=== PATIENT | female | born 1985 | race African-American/Black ===

== ENCOUNTER 2017-03-11 19:40 | Emergency (ER) | payer BC ==
[~2017-03-11] VITALS: Ht 167.6 cm; Wt 63.5 kg
--- NOTE | 2017-03-11 20:10 | NUR ---
PT BIB SELF FROM HOME C/O ABD'L PAIN FOR OVER 7HRS. WAITING IN ER BED 8. BEING SEEN BY MD. Pt IS A/OX4. VS STABLE.
--- NOTE | 2017-03-11 20:20 | NUR ---
URINE SAMPLE COLLECTED. BLOOD CULTURES COLLECTED.
[2017-03-11 20:26] LABS: APPEARANCE,URINE Clear (CLEAR); BILIRUBIN,URINE Negative (NEGATIVE); BLOOD, URINE Negative Ery/uL (NEGATIVE); COLOR,URINE Yellow (YELLOW); KETONES,URINE Negative (NEGATIVE); LEUKOCYTE ESTERASE ,URINE Negative (NEGATIVE); NITRITE, URINE Negative (NEGATIVE); PH,URINE 7.5 (5.0-8.0); PROTEIN,URINE Negative (NEGATIVE); UGLUCOSE Negative (NEGATIVE); UROBILINOGEN,URINE 0.2 EU/dL (0.2)
[2017-03-11 20:26] LABS: BASOPHILS % (AUTO) 0.5 % (0.0-2.0); EOSINOPHILS # (AUTO) 0.3 /CMM (0.0-0.7); EOSINOPHILS % (AUTO) 3.1 % (0.0-6.0); HEMATOCRIT 38 % (33-45); HEMOGLOBIN 12.9 g/dL (11.5-14.8); LYMPHOCYTES # (AUTO) 4.1 /CMM (0.8-4.8); LYMPHOCYTES % (AUTO) 44.2 % (20.0-44.0); MEAN CORPUSCULAR HEMOGLOBIN 30 PG (26.0-33.0); MEAN CORPUSCULAR HGB CONC 34 g/dl (31.0-36.0); MEAN CORPUSCULAR VOLUME 88 fL (82-100); MONOCYTES # (AUTO) 0.6 /CMM (0.1-1.30); MONOCYTES % (AUTO) 6.4 % (2.0-12.0); NEUTROPHILS # (AUTO) 4.3 /CMM (1.8-8.9); NEUTROPHILS % (AUTO) 45.8 % (43.0-81.0); PLATELET COUNT (AUTO) 279 /CMM (150-450); RDW COEFFICIENT OF VARIATION 13.9 (11.5-15.0); RED BLOOD CELL COUNT(AUTO) 4.34 MIL/uL (4.0-5.2); WHITE BLOOD COUNT (AUTO) 9.3 K/uL (4.3-11.0)
[2017-03-11 20:32] LABS: CALCIUM, SERUM 8.9 mg/dL (8.5-10.1); CREATININE 0.8 mg/dL (0.6-1.3); POTASSIUM 4.1 mmol/L (3.5-5.1)
[2017-03-11 20:38] LABS: ALBUMIN 4.1 g/dL (3.4-5.0); BILIRUBIN,DIRECT 0.1 mg/dL (0.0-0.2); BILIRUBIN,TOTAL 0.3 mg/dL (0.2-1.0); TOTAL PROTEIN, SERUM 8.2 g/dL (6.4-8.2)
[2017-03-11 20:41] LABS: PREGNANCY TEST URINE QUAL NEGATIVE (NEGATIVE)
[2017-03-11 20:54] VITALS: BP 115/72
== END 2017-03-11 20:58 | disposition home or self-care (01) ==
LOC: ER 19:42
DX: K29.00 Acute gastritis without bleeding (principal); Z88.0 Allergy status to penicillin; Z88.2 Allergy status to sulfonamides; Z90.49 Acquired absence of other specified parts of digestive tract
CPT/HCPCS: 36415; 80048-TC; 80076-TC; 81000-TC; 83690-TC; 84703-TC; 85025-TC; A4606; Z7610

== ENCOUNTER 2017-04-13 23:03 | Emergency (ER) | payer BC ==
[~2017-04-13] VITALS: Ht 162.6 cm; Wt 93.0 kg
--- NOTE | 2017-04-13 23:50 | NUR ---
PT BIBSELF C/O "I'VE BEEN COUGHING UP BLOOD" AT 10PM TONIGHT. PT ALSO C/O MID STERNAL CHEST PAIN SINCE THURSDAY. PT AOX3 RR EVEN AND UNLABORED. NO SOB NOTED. NAD NOTED. NO NVD AT THIS TIME. PT GOWNED. DR DUVALL AT BEDSIDE FOR EVAL. URINE COLLECTED.
--- NOTE | 2017-04-13 23:56 | NUR ---
CALLED LAB FOR [facility].
--- NOTE | 2017-04-14 00:15 | NUR ---
RADIOLOGY AT BEDSIDE FOR CXR
--- NOTE | 2017-04-14 01:20 | NUR ---
DR. DUVALL AT BEDSIDE SPEAKING TO PT REGARDING RESULTS.
--- NOTE | 2017-04-14 01:25 | NUR ---
IV removed. Catheter intact and site benign. Pressure and 4x4 applied to site. No bleeding noted. Patient discharged to home in stable condition. Written and verbal after care instructions given. Patient verbalizes understanding of instruction. ambulatory with a steady gait.
[2017-04-14 01:27] VITALS: BP 126/62
== END 2017-04-14 01:27 | disposition home or self-care (01) ==
LOC: ER 23:03
DX: J06.9 Acute upper respiratory infection, unspecified (principal); R04.2 Hemoptysis; Z88.0 Allergy status to penicillin; Z88.2 Allergy status to sulfonamides; Z90.49 Acquired absence of other specified parts of digestive tract; Z60.2 Problems related to living alone
CPT/HCPCS: 71010; 84703; 99283; A4606; Z7610

== ENCOUNTER 2018-02-19 14:46 | Emergency (ER) | payer BC, OTHER ==
[~2018-02-19] VITALS: Ht 165.1 cm; Wt 102.1 kg
--- NOTE | 2018-02-19 14:52 | NUR ---
BROUGHT IN BY SELF 32 YEAR OLD FEMALE C/O SUBSTERNAL CP X 1 WEEK. PATIENT STATED THE PAIN IS INTERMITENT. BREATHING EVEN AND UNALBORED WITH NO DISTRESS NOTED. SKIN WARM TO TOUCH AND INTACT. AWAITING TO BE SEEN BY .
[2018-02-19] MEDS ORDERED: MAG HYDROX/AL HYDROX/SIMETH 30 ML UDC PO ONE (15:00)
[2018-02-19] MEDS ORDERED: LIDOCAINE VISCOUS 2% UD 15 ML UDC MM ONE (15:00)
[2018-02-19 15:17] LABS: BASOPHILS # (AUTO) 0.2 /CMM (0.0-0.2); BASOPHILS % (AUTO) 3.2 % (0.0-2.0); EOSINOPHILS % (AUTO) 1.8 % (0.0-6.0); HEMATOCRIT 37 % (33-45); HEMOGLOBIN 12.4 g/dL (11.5-14.8); LYMPHOCYTES # (AUTO) 2.7 /CMM (0.8-4.8); MEAN CORPUSCULAR HEMOGLOBIN 30 PG (26.0-33.0); MEAN CORPUSCULAR HGB CONC 33 g/dl (31.0-36.0); MEAN CORPUSCULAR VOLUME 89 fL (82-100); MONOCYTES # (AUTO) 0.4 /CMM (0.1-1.30); MONOCYTES % (AUTO) 4.9 % (2.0-12.0); NEUTROPHILS # (AUTO) 4.3 /CMM (1.8-8.9); NEUTROPHILS % (AUTO) 55.1 % (43.0-81.0); PLATELET COUNT (AUTO) 301 /CMM (150-450); RDW COEFFICIENT OF VARIATION 13.4 (11.5-15.0); RED BLOOD CELL COUNT(AUTO) 4.18 MIL/uL (4.0-5.2); WHITE BLOOD COUNT (AUTO) 7.7 K/uL (4.3-11.0)
[2018-02-19] MEDS ORDERED: MAG HYDROX/AL HYDROX/SIMETH 30 ML UDC ONE (15:22)
[2018-02-19] MEDS ORDERED: LIDOCAINE VISCOUS 2% UD 15 ML UDC ONE (15:24)
[2018-02-19 15:27] LABS: CALCIUM, SERUM 9.2 mg/dL (8.5-10.1); CARBON DIOXIDE 26 mmol/L (21-32); CHLORIDE 106 mmol/L (98-107); CREATININE 0.8 mg/dL (0.6-1.3); GLUCOSE 105 mg/dL (74-106); POTASSIUM 4.2 mmol/L (3.5-5.1); SODIUM SERUM 138 mmol/L (136-145); UREA NITROGEN, BLOOD 6 mg/dL (7-18)
[2018-02-19 15:31] LABS: INR 0.94 (0.85-1.15)
[2018-02-19 15:33] LABS: ALANINE AMINOTRANSFERASE 14 U/L (12-78); ALBUMIN 3.7 g/dL (3.4-5.0); ALKALINE PHOSPHATASE 60 U/L (46-116); ASPARTATE AMINOTRANSFERASE 15 U/L (15-37); BILIRUBIN,DIRECT 0.1 mg/dL (0.0-0.2); BILIRUBIN,TOTAL 0.2 mg/dL (0.2-1.0); TOTAL PROTEIN, SERUM 7.8 g/dL (6.4-8.2)
[2018-02-19 15:35] LABS: TROPONIN I < 0.017 ng/mL (0.00-0.056)
[2018-02-19 16:20] VITALS: BP 121/70
== END 2018-02-19 16:20 | disposition home or self-care (01) ==
LOC: ER 14:47
DX: R07.2 Precordial pain (principal); K29.70 Gastritis, unspecified, without bleeding; F10.10 Alcohol abuse, uncomplicated; Z88.0 Allergy status to penicillin; Z88.2 Allergy status to sulfonamides; Z60.2 Problems related to living alone; Z90.49 Acquired absence of other specified parts of digestive tract; Y90.9 Presence of alcohol in blood, level not specified
CPT/HCPCS: 36415; 71045-TC; 80048-TC; 80076-TC; 83690-TC; 84484-TC; 85025-TC; 85730-TC; 93307-TC; A4606; Z7610